=== PATIENT | male | born 2000 | race Two or more races ===

== ENCOUNTER 2022-08-08 21:18 | Emergency (ER) | payer BC ==
[~2022-08-08] VITALS: Ht 175.3 cm; Wt 90.7 kg
[2022-08-08] MEDS ORDERED: RISPERDAL2 MG (21:43)
== END 2022-08-09 02:50 | disposition home or self-care (01) ==
LOC: ER 21:18 → EMR PED 21:18
DX: S00.93XA Contusion of unspecified part of head, initial encounter (principal); W18.30XA Fall on same level, unspecified, initial encounter; Y93.9 Activity, unspecified; Y92.019 Unspecified place in single-family (private) house as the place of occurrence of the external cause